=== PATIENT | male | born 1985 | race Caucasian/White ===

== ENCOUNTER 2017-02-02 07:02 | Day surgery (SDC) | payer OTHER ==
[~2017-02-02] VITALS: Ht 175.3 cm; Wt 127.0 kg
[2017-02-02 07:19] VITALS: BP 156/90
[2017-02-02 11:35] VITALS: BP 138/85
== END 2017-02-02 11:15 | disposition home or self-care (01) ==
LOC: DS 07:02 → OR 07:30 → DS 11:15
PROVIDERS: Surgery
PROC: 0JB50ZZ Excision of Left Neck Subcutaneous Tissue and Fascia, Open Approach (ICD-10-PCS; principal; 2017-02-02 07:30)
DX: L73.2 Hidradenitis suppurativa (principal); E11.9 Type 2 diabetes mellitus without complications; G47.33 Obstructive sleep apnea (adult) (pediatric); I10 Essential (primary) hypertension; E66.9 Obesity, unspecified; Z68.41 Body mass index [BMI] 40.0-44.9, adult
CPT/HCPCS: 82962; J0690; J1815; J2175; J2250; J2405; J2704; J3010; J3490; J7030